=== PATIENT | male | born 1985 | race Caucasian/White ===

== ENCOUNTER 2022-09-01 17:44 | Outpatient (REF) | payer BC, SELFPAY ==
[2022-09-01 21:29] LABS: HCT 44.9 % (40.0-50.0); HGB 14.9 g/dL (13.5-17.5); MCH 29.4 pg (27.0-33.0); MCHC 33.2 % (32.0-36.0); MCV 89 fL (80-95); MPV 9.9 fL (8.0-11.0); Platelet Count 334 10^3/uL (130-400); RBC 5.07 10^6/uL (4.36-5.78); RDW 12.1 % (11.8-14.1); RDW-SD 39.4 fL; WBC 6.61 10^3/uL (4.4-10.8)
[2022-09-01 21:43] LABS: ALT 57 U/L (16-63); AST 31 U/L (15-37); Albumin 4.5 g/dL (3.4-5.0); Alkaline Phosphatase 69 U/L (46-116); Anion Gap 8.2 mmol/L (3-11); BUN 13 mg/dL (7-18); Bilirubin, Total 0.7 mg/dL (0.2-1.0); CO2 29.8 mmol/L (21.0-32.0); Calcium 9.5 mg/dL (8.5-10.1); Calculated LDL 185 mg/dL (<100); Chloride 104 mmol/L (98-107); Cholesterol 288 mg/dL (<200); Estimated GFR 101.28 (mL/min/1.73m2); Glucose 99 mg/dL (74-106); HDL Cholesterol 47 mg/dL (40-60); Sodium 142 mmol/L (136-145); Total Protein 8.1 g/dL (6.4-8.2); Triglyceride 281 mg/dL (<150)
[2022-09-01 21:48] LABS: Hemoglobin A1C 5.3 % (<5.7)
== END 2022-09-01 17:45 | disposition home or self-care (01) ==
LOC: NCHCN 17:44
PROVIDERS: Visit Provider Nurse Practitioner Family
DX: Z00.00 Encounter for general adult medical examination without abnormal findings (principal); M54.59 Other low back pain; E66.8 Other obesity; Z13.1 Encounter for screening for diabetes mellitus; Z13.220 Encounter for screening for lipoid disorders
CPT/HCPCS: 80053; 80061; 85027; 83036

== ENCOUNTER 2023-10-26 18:03 | Outpatient (REF) | payer BC, SELFPAY ==
[2023-10-26 22:27] LABS: Abs Immature Grans 0.01 10^3/uL (0.0-0.06); Absolute Basophil Count 0.05 10^3/uL (0.0-0.2); Absolute Eosinophil Count 0.14 10^3/uL (0.0-0.7); Absolute Lymphocyte Count 1.59 10^3/uL (1.2-3.4); Absolute Monocyte Count 0.64 10^3/uL (0.1-0.8); Basophils % 1.1; HCT 43.9 % (40.0-50.0); HGB 14.8 g/dL (13.5-17.5); Immature Grans % 0.2; Lymphocytes % 34.3; MCH 30.1 pg (27.0-33.0); MCHC 33.7 % (32.0-36.0); MCV 89 fL (80-95); MPV 9.9 fL (8.0-11.0); Monocytes % 13.8; Neutrophils % 47.6; Platelet Count 303 10^3/uL (130-400); RBC 4.91 10^6/uL (4.36-5.78); RDW-SD 39.6 fL; WBC 4.63 10^3/uL (4.4-10.8)
[2023-10-26 22:42] LABS: ALT 93 U/L (16-63); AST 36 U/L (15-37); Albumin 4.2 g/dL (3.4-5.0); Alkaline Phosphatase 67 U/L (46-116); Anion Gap 9.7 mmol/L (3-11); BUN 11 mg/dL (7-18); Bilirubin, Total 0.6 mg/dL (0.2-1.0); CO2 26.3 mmol/L (21.0-32.0); CREATININE 0.9 mg/dL (0.70-1.30); Calcium 8.8 mg/dL (8.5-10.1); Chloride 106 mmol/L (98-107); Creatine Kinase 230 U/L (39-308); Estimated GFR 114.22 (mL/min/1.73m2); Glucose 91 mg/dL (74-106); Sodium 142 mmol/L (136-145); Total Protein 7.6 g/dL (6.4-8.2)
[2023-10-26 22:59] LABS: ESR 10 mm/hr (0-15)
[2023-10-27 17:20] LABS: CRP, High Sensitivity 4.42 mg/L (See Note)
[2023-10-28 10:58] LABS: Lyme Ab w Rflx to Lyme Confirm Negative (Negative)
[2023-10-30 00:06] LABS: Anaplasma phagocytophilum Negative (Negative); B. miyamotoi PCR Negative (Negative); Babesia divergens/MO-1 Negative (Negative); Babesia duncani Negative (Negative); Babesia microti Negative (Negative); Ehrlichia chaffeensis Negative (Negative); Ehrlichia ewingii/canis Negative (Negative); Ehrlichia muris eauclairensis Negative (Negative)
== END 2023-10-26 18:04 | disposition home or self-care (01) ==
LOC: NCHCN 18:03
PROVIDERS: Visit Provider Registered Nurse
DX: R52 Pain, unspecified (principal)
CPT/HCPCS: 80053; 82550; 85652; 86141; 87798; 85025; 86618

== ENCOUNTER 2024-04-04 20:38 | Outpatient (REF) | payer BC, SELFPAY ==
--- OUTSIDE RECORDS SUMMARY | 2024-04-04 20:39 | XMS_ITS | Encounter Summary ---
Author Organization [facility] Address [address] [place] [address] Care Team Providers Care Light Rail Transit Operator Name Role Phone Colleen Sheridan OIL WELL SHOOTER Primary Care Provider [phone] Reason for Referral * Consult, Test and Treat (Routine/Next Available) - Authorization Not Required Specialty Diagnoses / Procedures Referred By Contac t Referred To Contact Pain Medicine Diagnoses Low back pain radiating to both legs Elizabeth Bartholomew PA-C [address] [facility] [place] [address] [facility] [address] [place] [address] Referral ID Status Reason Start Date Expiration Date Visits Requested Visits Authorized [id number] Authorization Not Required Specialty Services Required 4 1 1 Question Answer What procedure would you like performed? Please specify laterality and levels. L5-S1 LUCY Has the patient had 6 weeks of conservative treatment such as physicial therapy or NSAIDS? Yes Associated Notes: Prism Reason for Request: Low back pain radiating to both legs Reason for Visit * Reason Comments Pain * Consult (Routine) - Receiving Office to Obtain Authorization Specialty Diagnoses / Procedures Referred By Contac t Referred To Contact Orthopedic Surgery Diagnoses Radiculopathy, lumbosacral region Syeda Snowden PA-C [address] [place] [address] [facility] [address] [place] [address] Referral ID Status Reason Start Date Expiration Date Visits Requested Visits Authorized [id number] Receiving Office to Obtain Authorization 1 1 Encounter Details Date Type Department Care Team (Late st Contact Info) Description 02/26/2024 13:00 EDT Office Visit [facility] [address] [place] [address] Elizabeth Bartholomew PA-C [address] [facility] [place] [address] Low back pain radiating to both legs (Primary Dx) Social History Tobacco Use Types Packs/Day Years Used Date Smoking Tobacco: Never Smokeless Tobacco: Never Tobacco Cessation:Counseling Given: Not Answered Alcohol Use Standard Drinks/Week Comments No 0 (1 standard drink = 0.6 oz pur e alcohol) AUDIT-C Answer Date Recorded Frequency of Alcohol Consumption Never 06/06/2018 Average Number of Drinks Not on file 018 Frequency of Binge Drinking Not on file 05/14 Interpersonal Safety Answer Date Record ed Physically Hurt Never 02/12/2020 Verbally Threaten Not on file 02/12/2020 Sex and Gender Information Value Date Recorded Sex Assigned at Not on file Gender Identity Not on file Sexual Orientation Not on file documented as of this encounter Progress Notes * Elizabeth Bartholomew PA-C - 02/26/2024 1300 EDT Mr. Roper is a 38 y.o. pleasant male who presents to the clinic today, 02/26/2024, with 50% LBP. 50% B/L LE pain affecting: A. THIGH: Posterior aspect. Numbness in the anterior aspect as well B. LOWER LEG: Posterior aspect. C. FOOT: No symptoms. ONSET: This is a chronic issue that has been present since 2021, for LBP and since September 2023, for B/L LE symptoms. Has not been improving.. Symptoms wax and wane, but they are present everyday. ALLEVIATING FACTORS: Bending forward. AGGRAVATING FACTORS: Laying down, sitting, extending his back. PAIN: 6/10. CONSERVATIVE TX: Physical Therapy: Yes, did not help. CHIRO: No. Steroid injections: NONE. Medications: None. SOCIAL: SMOKING: Never. 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 Patient lives with his . Review of Systems Constitutional: Positive for activity change. Negative for unexpected weight change. Eyes: Negative for visual disturbance. Respiratory: Negative for chest tightness. Gastrointestinal: Negative for constipation. Genitourinary: Negative for difficulty urinating. Musculoskeletal: Positive for low back pain. Negative for neck pain. Skin: Negative for rash. Neurological: positive for numbness. Psychiatric/Behavioral: Negative for agitation and behavioral problems. Physical Exam Constitutional: Patient is oriented to person, place, and time, and appears well-developed and well-nourished. Eyes: EOM are normal. Pupils are equal, round, and reactive to light. Cardiovascular: Normal rate. Pulmonary/Chest: Effort normal and breath sounds normal. Neurological: Patient is alert and oriented to person, place, and time. Skin: Skin is warm and dry. No rash noted. Psychiatric: Patient has a normal mood and affect, and behavior is normal. Family and Social History: Reviewed. Back Exam from initial visit in 02/26/2024: GAIT: Normal. HEEL & TOE WALKING: NEG. LESIONS, RASHES OR HAIR ISSA: NEG. FROM, but pain is elicited with extension/rotation of the lumbar spine. TENDERNESS ON PALPATION: NEG. STRENGTH: 5/5 REFLEXES: Patellar 2/4 B/L; Achilles 2/4 B/L. BABINSKI: Down. CLONUS: NEG. DP: 2/2. SENSATION: Intact. SLR RIGHT: NEG. LEFT: NEG. HIP ROM: Full. BERKLEY'S: NEG. Today, 02/26/2024, I ordered plain radiographs and I independently reviewed the following radiographs: MRI-01/06/2024: L5-S1: Diffuse disc bulging at L5-S1 that extends laterally causing moderate left neuroforaminal narrowing. There is also small central disc herniation with extrusion posterior to the S1 vertebral body. Lumbar Plain radiographs (AP/Lat/Flex/Ex): Five (5) non-rib bearing lumbar vertebrae Facet arthropathy of the lower lumbar spine Disc height reduction at L5-S1 conistent with degenerative disc disease No fractures or pars defects noted Assessment: 38 y.o. male with 50% LBP most likely secondary to degenerative disc/facet disease. 50% B/L LE pain along the S1 dermatome most likely radicular in nature. MRI concordant especially with left-sided symptoms. Chemical radiculopathy could justify RLE symptoms.. Paresthesias along the L3 dermatomes not concordant with MRI. He has agreed and verbalized understanding of the following plan. Plan: L5-S1 LUCY. Continue with in-home exercise program. Continue activity as tolerated. Return to clinic post L5-S1 LUCY-if no relief, referred for surgical consultation if desired by patient. CC: Dr. Arvin Arizmendi was the attending physician available in the clinic today if needed. A consultation was not required. documented in this encounter Plan of Treatment Upcoming Encounters Date Type Department Care Team (Late st Contact Info) Description 04/22/2024 14:30 EDT Office Visit [facility] Interventional Pain [address] [place], [place] [id number] Сергей Maloney MBBS [address] [facility] [address] [place] [address] Scheduled Referrals Name Type Priority Associated Diagnoses Order Schedule AMB PAIN PROCEDURE Outpatient Referral Routine/Next Available Low back pain radiating to both legs Expected: 03/04/2024 (Approximate), Expires: 02/25/2025 documented as of this encounter Visit Diagnoses Diagnosis Low back pain radiating to both legs- Primary Lumbago documented in this encounter Historical Medications * This list may reflect changes made after this encounter. Medication Sig Dispensed Refills Start Date End Date meloxicam (MOBIC) 15 mg tablet Take 1 Tablet by mouth at bedtime as needed for Pain. 11/02/2023 added in this encounter Care Teams Light Rail Transit Operator Relationship Specialty Start Date End Date Colleen Sheridan, JOHN [address] [place] [address] PCP - General 06/06/18 documented as of this encounter
--- OUTSIDE RECORDS SUMMARY | 2024-04-04 20:39 | XMS_ITS ---
Author Organization Unknown Address [address] [place] [phone] Phone Care Team Providers Care Child Care Aide Name Role Phone KADEN Galvan Attending Unavailable Social History Type Status Start Date End Date Code Code Syst em Smoking History Former smoker [id number] SNOMED CT Sex Male Hospital Discharge Instructions Should you have any questions prior to discharge, please contact a member of your healthcare team. If you have left the hospital and have any questions, please contact your primary care physician. Reason For Referral No Data Found Allergies and Adverse Reactions Allergy Substance Reaction Severity Start Date Concern Status Co de Code System No Known Allergies Moderate Active Plan of Treatment MRI L SPINE W/O CONTRAST 01/06/2024 X-RAY 06/10/2021 Encounters Encounter Diagnosis Start Date Code Code Sys tem Pain in thoracic spine 02/19/2024 SNOME D-CT Personal Care Team Section Performer Name Performer Role Active Date Inactive Da te
--- OUTSIDE RECORDS SUMMARY | 2024-04-04 20:39 | XMS_ITS ---
Author Organization Unknown Address [address] [place] [phone] Phone Care Team Providers Care Talent Manager Name Role Phone ZULY Rueda Attending Unavailable KADEN Galvan Primary Unavailable Results MR LS SPINE WO CONTRAST - Co mpleted: 01/06/2024 15:55 LOINC: [facility] [place], [place] [address] [facility] REGULAT[facility] SCIENTIST REPORT Patient Name: BALTAZAR KEN Marybeth MRN: Sex: : Age: [id number] M [id number] Account: Accession: Admit: StayType: [id number] 01/06/2024 O Ordered: Order ID: Submitted: Ordering Provider: 01/06/2024 14:48 [id number] KT RIVAS CARUSO Completed: Technologist: Resulted: 01/06/2024 15:01 AXH 01/06/2024 16:19 FINAL REPORT EXAM: MR LS SPINE WO CONTRAST CLINICAL HISTORY: Reason MRI Spine: Radicalopathy. TECHNIQUE: Multiplanar multisequence MRI of the Lumbar spine was performed. COMPARISON: No exams were available for comparison FINDINGS: Bones: The last intervertebral disc space is designated the L5/S1 level for the numbering purpose of this examination. The vertebral body heights are well maintained. Alignment is satisfactory. There are degenerative endplate signal changes at L5-S1. There is disc desiccation at L5-S1. Cord: The conus tip ends at the T12 level. It is of normal size and signal intensity. T12-L1: No disc herniations or bulges are present. No central spinal canal or neural foraminal stenosis. L1-2: No disc herniations or bulges are present. No central spinal canal or neural foraminal stenosis. L2-3: No disc herniations or bulges are present. No central spinal canal or neural foraminal stenosis. L3-4: No disc herniations or bulges are present. No central spinal canal or neural foraminal stenosis. L4-5: No disc herniations or bulges are present. No central spinal canal or neural foraminal stenosis. L5-S1: There is a central disc herniation present. There is also herniation of disc material laterally to the left causing moderate left neural foraminal stenosis. No significant central spinal canal or right neural foraminal stenosis is present. Soft tissues: The visualized SI joints and sacrum are well maintained. The paraspinal soft tissues are unremarkable. IMPRESSION: 1. There is a diffuse disc bulge at L5-S1 with extension laterally to the left causing moderate left neural foraminal stenosis. There is also small central disc herniation with extrusion posterior to the S1 vertebral body. 2. The remaining disc levels show no focal disc herniation, central spinal canal or neural foraminal stenosis. DATA REPOSITORY: Electronically signed by: Shawn Silver Dictated: 01/05 Social History Type Status Start Date End Date Code Code Syst em Smoking History Former smoker [id number] SNOMED CT Sex Male Hospital Discharge Instructions [...] Diagnosis Start Date Code Code Sys tem Intervertebral disc disorder s with radiculopathy, lumbar region 01/06/2024 SNOMED-CT Personal Care Team Section Performer Name Performer Role Active Date Inactive Da te
--- OUTSIDE RECORDS SUMMARY | 2024-04-04 20:39 | XMS_ITS ---
Author Organization Unknown Address [address] [place] [phone] Phone Care Team Providers Care Orthotic Practitioner Name Role Phone SHARAN Quinones Attending Unavailable KADEN Galvan Primary Unavailable Results SPERM, PRESENCE OF - POST VA SECTOMY* - Collect Date/Time: 02/24/2022 13:00 [facility] ID: [id number] [address] [place] [address], [id number] LOINC: 26759-2 Test Value Unit Reference Range Code Code System Flag Presence Not present Social History Type Status Start Date End Date Code Code Syst em Smoking History Former smoker [id number] SNOMED CT Sex Male Hospital Discharge Instructions [...] Diagnosis Start Date Code Code Sys tem Sterilization procedure 02/24/2022 [id number] SNOM ED-CT Personal Care Team Section Performer Name Performer Role Active Date Inactive Da te
--- OUTSIDE RECORDS SUMMARY | 2024-04-04 20:39 | XMS_ITS | Referral Summary ---
Author Organization [facility] Address [address] [place] [address] Care Team Providers Care Adjunct Business Instructor Name Role Phone Colleen Sheridan CHUTE WORKER Primary Care Provider [phone] Encounters Date Type Department Care Team Description 02/26/2024 12:45 EDT - 02/26/2024 23:59 EDT Hospital Encounter [facility] [address] [place] [address] Discharge Disposition: Home or Self Care 02/26/2024 13:00 EDT Office Visit [facility] [place] [address] Elizabeth Bartholomew PA-C Low back pain radiating to both legs (Primary Dx) 02/25/2024 Orders Only [facility] [place] [address] Elizabeth Bartholomew PA-C Low back pain, unspecified back pain laterality, unspecified chronicity, unspecified whether sciatica present (Primary Dx) 01/06/2024 - 01/06/2024 23:59 EDT Hospital Encounter [facility] [place] Discharge Disposition: Home or Self Care from Last 3 Months Allergies No known active allergies Medications Medication Sig Dispensed Refills Start Date End Date Status erythromycin (ROMYCIN) 5 mg/gram (0.5 %) ophthalmic ointment Place 1 cm into the left eye 4 times daily. prn 3.5 g 3 06/06/2018 Active Additional Information Patient not taking.Reported on 06/10/2018 moxifloxacin (VIGAMOX) 0.5 % ophthalmic solution Place 1 Drop into the left eye 4 times daily. 3 mL 3 06/06/2018 Active Additional Information Patient not taking.Reported on 06/10/2018 meloxicam (MOBIC) 15 mg tablet Take 1 Tablet by mouth at bedtime as needed for Pain. 11/02/2023 Active Social History Tobacco Use Types Packs/Day Years [...] on file Sexual Orientation Not on file Last Filed Vital Signs Vital Sign Reading Time Taken Comments Blood Pressure 137/75 06/06/2018 1318 EST Pulse 62 06/06/2018 1318 EST Temperature 36.2 ??C (97.2 ??F) 06/06/2018 1318 EST Respiratory Rate 16 06/06/2018 1318 EST Oxygen Saturation 100% 06/06/2018 1318 EST Inhaled Oxygen Concentration - - Weight 90.7 kg (200 lb) 06/06/2018 1318 EST Height 172.7 cm (5' 8) 06/06/2018 1318 EST Body Mass Index 30.41 06/06/2018 1318 EST Plan of Treatment Upcoming Encounters Date Type Department Care Team (Late st Contact Info) Description 04/22/2024 14:30 EDT Office Visit [facility] Interventional Pain [address] [place] [address] Сергей Maloney MBBS [address] [facility] [address] [place] [address] Procedures Procedure Name Priority Date/Time Associated Diagnosis Comments XR LUMBAR SPINE 4+ VIEWS Routine 02/26/2024 13:14 EDT Low back pain, unspecified back pain laterality, unspecified chronicity, unspecified whether sciatica present MR OUTSIDE IMAGES LUMBAR SPINE Routine 01/06/2024 13:57 EDT from Last 3 Months Results * XR LUMBAR SPINE 4+ VIEWS (02/26/2024 13:14 EDT) Anatomical Region Laterality Modality Computed Radiogr aphy 03/01/2024 6:37 EDT Narrative 03/01/2024 6:37 EDT XR LUMBAR SPINE 4+ VIEWS 02/26/2024 1:03 PM Clinical History/Comments: assess stability Comparison: MRI lumbar spine 01/06/2024 Technique: Lumbar spine. 4 views Findings: For the purposes of this dictation and to be consistent with prior MRI report, the last well-formed disc is labeled L5-S1. Mild retrolisthesis of L5 on S1, unchanged. No evidence of instability. Vertebral body heights are preserved. Moderate disc space narrowing and facet arthropathy at L5-S1. [id number] Resulting Agency Comment [id number] Procedure Note Rachelle Agudelo MD - 03/01/2024 XR LUMBAR SPINE 4+ VIEWS 02/26/2024 1:03 PM Clinical History/Comments: assess stability Comparison: MRI lumbar spine 01/06/2024 Technique: Lumbar spine. 4 views Findings: For the purposes of this dictation and to be consistent with prior MRIreport, the last well-formed disc is labeled L5-S1. Mild retrolisthesis of L5 on S1, unchanged. No evidence of instability.Vertebral body heights are preserved. Moderate disc space narrowing andfacet arthropathy at L5- S1. [id number] Elizabeth Bartholomew PA-C IMG DIAGNOSTIC IMAGING ORDERABLES * MR OUTSIDE IMAGES LUMBAR SPINE (01/06/2024 13:57 EDT) Narrative 02/26/2024 13:57 EDT This is a non-reportable exam. External Imaging IMG OTHER IMAGING OR DERABLES from Last 3 Months Stephan Roper Personal/Family Self 1985 [address] [facility] [place] [address] Stephan Roper Personal/Family Self 1985 [address] [facility] [place] [address] Stephan Roper Personal/Family Self 1985 73 [facility] [place] [address] Stephan Roper Personal/Family Self 1985 [address] [employer] [facility] [place] [address] Care Teams Adjunct Business Instructor Relationship Specialty Start Date End Date Colleen Sheridan NP [address] [place] [address] PCP - General 06/06/18
--- OUTSIDE RECORDS SUMMARY | 2024-04-04 20:39 | XMS_ITS | Clinical Summary ---
Author Organization [facility] Address [address] [place] [address] Care Team Providers Care Slat Grader Name Role Phone ArvinColleen Mandy EMAIL MARKETING COORDINATOR Primary Care Provider [phone] Allergies No known active allergies Medications Medication [...] bedtime as needed for Pain. 11/02/2023 Active Encounters Date Type Department Care Team Description 02/26/2024 13:00 EDT Office Visit [facility] [place] [address] Elizabeth Bartholomew PA-C Low back pain radiating to both legs (Primary Dx) 02/26/2024 12:45 EDT - 02/26/2024 23:59 EDT Hospital [place] [address] Discharge Disposition: Home or Self Care 02/25/2024 Orders Only [facility] [place] [address] Delaportas, Grigorios, PA-C Low back pain, unspecified back pain laterality, unspecified chronicity, unspecified whether sciatica present (Primary Dx) 01/06/2024 - 01/06/2024 23:59 EDT Hospital Encounter [facility] [place] Discharge Disposition: Home or Self Care from Last 3 Months Social History Tobacco Use Types Packs/Day Years [...] on file Sexual Orientation Not on file Obstetrics History Last Filed Vital Signs Vital Sign Reading [...] Info) Description 04/22/2024 14:30 EDT Office Visit [facility] Interventional Pain [address] [place] [address] Сергей Maloney MBBS [address] [facility] [address] [place] [address] Health Maintenance Due Date Last Done Comments Hepatitis C Screen 1985 Hepatitis B Vaccine (1 of 3 - 19+ 3-dose series) 10/28 COVID-19 Vaccine ( - 2023-24 season) 2023 Procedures Procedure Name Priority Date/Time Associated Diagnosis [...] space narrowing and facet arthropathy at L5-S1. [id number] Resulting Agency Comment [id number] Procedure Note Rachelle Agudelo MD - 03/01/2024 [...] space narrowing andfacet arthropathy at L5- S1. [id number] Elizabeth Bartholomew PA-C [facility] DIAGNOSTIC IMAGING ORDERABLES * MR OUTSIDE IMAGES LUMBAR SPINE (01/06/2024 13:57 EDT) Narrative 02/26/2024 13:57 EDT This is a non-reportable exam. External Imaging IMG OTHER IMAGING OR DERABLES from Last 3 Months Care Teams Slat Grader Relationship Specialty Start Date End Date Colleen Sheridan, JOHN [address] [place] [address] PCP - General 06/06/18
--- OUTSIDE RECORDS SUMMARY | 2024-04-04 20:39 | XMS_ITS | Encounter Summary ---
Author Organization [facility] Address [address] [place] [address] Care Team Providers Care Goat Farmer Name Role Phone Colleen Sheridan MANAGEMENT RETAIL INTERN Primary Care Provider [phone] Encounter Details Date Type Department Care Team (Latest Contact Info) Description 02/26/2024 12:45 EDT - 02/26/2024 23:[address] ED[address] En[address] [place], [place] [id number] Discharge Disposition: Home or Self Care Social History Tobacco Use Types Packs/Day Years Used Date Smoking Tobacco: Never Smokeless Tobacco: Never Alcohol Use Standard Drinks/Week Comments No 0 [...] on file documented as of this encounter Medications at Time of Discharge Medication Sig Dispensed Refills Start Date End Date erythromycin (ROMYCIN) 5 mg/gram (0.5 %) ophthalmic ointment Place 1 cm into the left eye 4 times daily. prn 3.5 g 3 06/06/2018 meloxicam (MOBIC) 15 mg tablet Take 1 Tablet by mouth at bedtime as needed for Pain. 11/02/2023 moxifloxacin (VIGAMOX) 0.5 % ophthalmic solution Place 1 Drop into the left eye 4 times daily. 3 mL 3 06/06/2018 documented as of this encounter Discharge Disposition Disposition Code Departure Means Destination Home or Self Care documented in this encounter Plan of Treatment Upcoming Encounters Date Type Department Care Team (Late st Contact Info) Description 04/22/2024 14:[address] [facility] Interventional Pain [address] [place] [address] Сергей Maloney MBBS [address] [place] [address] documented as of this encounter Procedures Procedure Name Priority Date/Time Associated Diagnosis Comments XR LUMBAR SPINE 4+ VIEWS Routine 02/26/2024 13:14 EDT Low back pain, unspecified back pain laterality, unspecified chronicity, unspecified whether sciatica present documented in this encounter Results * XR LUMBAR SPINE 4+ VIEWS [...] space narrowing and facet arthropathy at L5-S1. [id number] Resulting Agency Comment [id number] Procedure Note Rachelle Agudelo MD - 03/01/2024 [...] space narrowing andfacet arthropathy at L5- S1. [id number] Elizabeth Bartholomew PA-C IMG DIAGNOSTIC IMAGING ORDERABLES documented in this encounter Visit Diagnoses Not on filedocumented in this encounter Care Teams Goat Farmer Relationship Specialty Start Date End Date Colleen Sheridan, MANAGEMENT RETAIL INTERN [address] [place] [address] PCP - General 06/06/18 documented as of this encounter
--- OUTSIDE RECORDS SUMMARY | 2024-04-04 20:40 | XMS_ITS | Encounter Summary ---
Author Organization [facility] Address [address] [place] [address] Care Team Providers Care Senior Label Specialist Name Role Phone MarshallColleen horn Mandy CASH APPLICATIONS ANALYST Primary Care Provider [phone] Reason for Visit * Reason Comments Foreign Body in Eye Arrives from [facility] with unknown FB in L eye +irratation and redness. Encounter Details Date Type Department Care Team (Late st Contact Info) Description 06/06/2018 13:13 EST - 06/06/2018 15:25 EST [facility] Emergency Department - [address] [id number] Xavier Moore MD [address] [address] David Obrien MD MSc [address] [place] [phone] Foreign body of left cornea, initial encounter (Primary Dx) Discharge Disposition: Referred to [facility] for OP Service Social History Tobacco Use Types Packs/Day Years Used Date Smoking Tobacco: Never Alcohol Use Standard Drinks/Week Comments No 0 (1 standard drink = 0.6 oz pur e alcohol) AUDIT-C Answer Date Recorded Frequency of Alcohol Consumption Never 06/06/2018 Average Number of Drinks Not on file 018 Frequency of Binge Drinking Not on file 05/14 Sex and Gender Information Value Date Recorded Sex Assigned at Not on file Gender Identity Not on file Sexual Orientation Not on file documented as of this encounter Last Filed Vital Signs Vital Sign Reading [...] Body Mass Index 30.41 06/06/2018 1318 EST documented in this encounter Discharge Diagnoses Diagnosis T15.02XA Foreign body in cornea, left eye, initial encounter-T15.02XA[ICD-10-CM] H57.12 Ocular pain, left eye-H57.12[ICD-10-CM] H53.8 Other visual disturbances-H53.8[ICD-10-CM] documented in this encounter Discharge Instructions * Attachments The following attachments cannot be sent through Care Everywhere. * FOREIGN BODY IN THE EYE (CHADIAN) documented in this encounter Discharge Disposition Disposition Code Departure Means Destination Referred to [facility] for OP Service Home documented in this encounter ED Notes * Kassie Mendoza RN - 06/06/2018 1525 EST MD moore discharged this patient to opthalm clinic. * Xavier Moore MD - 06/06/2018 1440 EST DOS: 06/06/2018 Chief Complaint Patient presents with ??? Foreign Body in Eye Arrives from [facility] with unknown FB in L eye +irratation and redness. HPI I, Elie Jennings, am scribing for Xavier Moore MD while he/she is personally performing the service. Elie Jennings 06/06/2018 14:41 Baltazar Roper is a 32 y.o. male with no significant medical history who arrives to the ED with complaints of a foreign body in his eye. 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 [facility] and removed but an embedded small foreign body was appreciated that was not able to be removed and ophthalmology was consulted. Patient was transferred for ophthalmology evaluation and foreign body removal. Patient has had conjunctival injection on the left with tearing, foreign body sensation without alleviating or exacerb ating factors. He has not had associated headache, no fevers, chills sweats, or systemic symptoms. The history is provided by the patient and medical records. Review of Systems Review of Systems Constitutional: Negative for chills and fever. HENT: Negative for sinus pressure and sore throat. Eyes: Positive for pain, redness and visual disturbance. Respiratory: Negative for cough and shortness of breath. Cardiovascular: Negative for chest pain. Gastrointestinal: Negative for abdominal pain, diarrhea, nausea and vomiting. Genitourinary: Negative for dysuria and frequency. Skin: Negative for rash. Neurological: Negative for headaches. The patient's past medical, family and social history was reviewed and updated as needed. No Known Allergies Vital Signs Temp: 36.2 ??C (97.2 ??F) Temp src: Temporal Pulse: 62 Resp: 16 SpO2: 100 % BP: 137/75 BP MAP: 87 mm Hg BP Device: BP Machine Patient Position: Sitting BP Cuff Location: Left arm O2 Device: None (Room air) Physical Exam Constitutional: He is oriented to person, place, and time. He appears well- developed and well-nourished. No distress. HENT: Head: Normocephalic and atraumatic. Eyes: EOM are normal. Pupils are equal, round, and reactive to light. Foreign body present in the left eye. Left conjunctiva is injected. Conjunctiva injection in the left, with tearing. Small punctate, round foreign body at the 12 o clock position above the pupil. No obvious corneal defect. Neck: Normal range of motion. Neck supple. No tracheal deviation present. Cardiovascular: Normal rate, regular rhythm, normal heart sounds and intact distal pulses. No murmur heard. Pulmonary/Chest: Effort normal and breath sounds normal. No respiratory distress. He has no wheezes. Abdominal: Soft. Bowel sounds are normal. He exhibits no distension. There is no tenderness. Musculoskeletal: Normal range of motion. He exhibits no edema. Neurological: He is alert and oriented to person, place, and time. He exhibits normal muscle tone. Skin: Skin is warm and dry. No rash noted. Psychiatric: He has a normal mood and affect. Nursing note and vitals reviewed. RESULTS EKG orders: None Radiology orders: None Procedures ED COURSE A medical screening exam was performed. 32-year-old male presents for ophthalmology evaluation of corneal foreign body on the left. Patienthad a very small foreign body at the 12 o'clock position above the pupil on the left with associated conjunctival injection and tearing. He was anesthetized with tetracaine with complete resolution in his foreign body sensation. He was discharged to ophthalmology directly upstairs for foreign body removal. Return precautions were given which he understood. Final diagnoses: Foreign body of left cornea, initial encounter DISPOSITION: Discharged The patient's pain was managed to an adequate level weighing risk vs. benefit of further medications. Upon departure from the Emergency Department, the patient's pain was 0 on a zero to ten scale. Any further pain treatment will be at the discretion of the provider following up with the patient based on their clinical assessment. Condition at departure from the Emergency Department: Improved PCP: Colleen Sheridan [facility] 06/06/2018 16:03 No flowsheet data found. This documentation is recorded by Elie Jennings acting as Scribe under the direction and presence of Xavier Moore MD. Xavier Moore MD: I personally performed the services recorded by the scribe in my presence. I confirm the scribe's documentation has been reviewed by me to accurately and completely record my work,treatment, procedures, and medical decision making. * Glenn Magdaleno - 06/06/2018 1317 EST TCALL: BALTAZAR GREEN 87. 32M LEFT CONAL FB X2DAYS. FB AT 12 OCLOCK - ONLY PARTIALLY REMOVED. NEEDS OPHTHO. SEE NOTE TAKEN BY DR. OBRIEN. (EDGAR) documented in this encounter Plan of Treatment Upcoming Encounters Date Type Department Care Team (Late st Contact Info) Description 04/22/2024 14:30 EDT Office Visit [facility] Interventional Pain [address] [place], [place] [id number] Сергей Maloney MBBS [address] [facility] [address] [place] [address] documented as of this encounter Visit Diagnoses Diagnosis Foreign body of left cornea, initial encounter- Primary documented in this encounter Administered Medications Inactive Administered Medications - up to 3 most recent administrations Medication Order MAR Action Action Date Dose Rate Site tetracaine HCl (PF) (PONTOCAINE) 0.5 % ophthalmic solution 1 Drop 1 Drop, left eye, Once (Without Time Specified), 1 dose, Starting on 06/06/18 at 1409, Until 06/06/18 at 1725, STAT documented in this encounter Active and Recently Administered Medications Times are shown in EST. Scheduled Medication Order 06/04/2018 06/05/2018 06/06/2018 tetracaine HCl (PF) (PONTOCAINE) 0.5 % ophthalmic solution 1 Drop 1 Drop, left eye, Once (Without Time Specified), 1 dose, Starting on 06/06/18 at 1409, Until 06/06/18 at 1725, STAT documented in this encounter Orders Medications Ordered That Garcia ht Not Have Been Administered Count Last Ordered Date First Ordered Date tetracaine HCl (PF) (PONTOCA INE) 0.5 % ophthalmic solution 1 Drop 1 06/06/2018 documented in this encounter Care Teams Senior Label Specialist Relationship Specialty Start Date End Date Colleen Sheridan NP [address] [place] [address] PCP - General 06/06/18 documented as of this encounter
--- OUTSIDE RECORDS SUMMARY | 2024-04-04 20:40 | XMS_ITS | Encounter Summary ---
Author Organization [facility] Address [address] [place] [address] Care Team Providers Care Syrup Shed Supervisor Name Role Phone Unavailable Primary Care Provider Unavailabl e Encounter Details Date Type Department Care Team (Latest Contact Info) Description 08/01/2014 12:16 EST - 08/01/2014 23:59 EST Hospital Encounter [facility] [address] [place] [address] Unknown, Provider, Discharge Disposition: Home or Self Care Social History Tobacco Use Types Packs/Day Years Used Date Smoking Tobacco: Never Assessed Sex and Gender Information Value Date Recorded Sex Assigned at Not on file Gender Identity Not on file Sexual Orientation Not on file documented as of this encounter Discharge Disposition Disposition Code Departure Means Destination Home or Self [facility] documented in this encounter Plan of Treatment Upcoming Encounters Date Type Department Care Team (Late st Contact Info) Description 04/22/2024 14:30 EDT Office Visit [facility] Interventional Pain [address] [place] [address] Сергей Maloney MBBS [address] [facility] [address] [place] [address] documented as of this encounter Visit Diagnoses Not on filedocumented in this encounter
--- OUTSIDE RECORDS SUMMARY | 2024-04-04 20:40 | XMS_ITS | Encounter Summary ---
Author Organization [facility] Address [address] [place] [address] Care Team Providers Care Shuttlecock Feather Trimmer Name Role Phone Colleen Sheridan DEVELOPMENT EDUCATOR Primary Care Provider [phone] Reason for Visit * Reason Comments Eye Problem Follow-up Encounter Details Date Type Department Care Team (Late st Contact Info) Description 06/10/2018 13:00 EST Office Visit [facility]mology - [place] [id number] [place] [address] Odessa Mao MD [address] [facility] [address] [place] [address] Social History Tobacco Use Types Packs/Day Years [...] as of this encounter Progress Notes * Odessa Mao MD - 06/10/2018 1300 EST CC: Chief Complaint Patient presents with ??? Eye Problem ??? Follow-up HPI: The patient is a 32 y.o. male. HPI Stephan is here for follow up corneal metallic foreign body, removed 4 days ago. Reports no new changes or concerns, vision stable, healing well. No FBS. Taking Vigamox qid OS Last edited by Odessa Mao MD on 06/15/2018 9:46. (History) ROS Constitutional: NL ENT/Mouth NL Cardiovascular: NL Respiratory: NL Gastrointestinal: NL Genitourinary: NL Musculoskeletal: NL Integumentary: NL Neurologic: NL Psychiatric: NL Endocrine: NL Hematologic: NL Immunologic: NL Claim Rep: Exposures: None Other: Attestation: Allergies include: Patient has no known allergies. There is no problem list on file for this patient. No outpatient medications have been marked as taking for the 06/10/18 encounter (Office Visit) withOdessa Mao MD. Base Eye Exam Visual Acuity (Snellen - Linear) Right Left Dist cc 20/20 20/20 -2 Near cc J1+ J1+ Tonometry (Icare, 13:06) Right Left Pressure 12 12 Pupils Pupils Right PERRL Left PERRL Normal Visual Mendoza Right Left Full Neuro/Psych Oriented x3: Yes Mood/Affect: Normal Slit Lamp and Fundus Exam External Exam Right Left External Normal Normal Slit Lamp Exam Right Left Lids/Lashes Normal Normal Conjunctiva/Sclera White and quiet White and quiet Cornea Clear Clear, no staining with fluoroscein Anterior Chamber Deep and quiet Deep and quiet Iris Round and reactive Round and reactive Lens Clear Clear Vitreous Normal Normal IMPRESSION & PLAN: Encounter Diagnoses Name Primary? Corneal foreign body, left, subsequent encounter Yes Corrected distance visual acuity was 20/20 in the right eye and 20/20 -2 in the left eye. Correctednear visual acuity was J1+ in the right eye and J1+ in the left eye. - baseline symptoms and vision - doing well, no corneal epi defect - dc vigamox - discussed wearing goggles during work to prevent injury to the eye including intraocular foreign body RTC prn I have reviewed the patient's past medical, family, social and surgical history. I have also reviewed the patient's medications, allergies, and problem list. I performed my own HPI and have reviewed the tech's ROS as well. I have reviewed and agree with the above sensorimotor exam/interpretation. I personally completed this exam myself. Odessa Mao MD The patient was instructed to call our office or go to emergency room if worse vision, worse symptoms, or new/other concerns arise. documented in this encounter Plan of Treatment Upcoming Encounters Date Type Department Care Team (Late st Contact Info) Description 04/22/2024 14:30 EDT Office Visit [facility] Interventional Pain [address] [place], [place] [id number] Сергей Maloney MBBS [address] [place] [address] documented as of this encounter Visit Diagnoses Diagnosis Corneal foreign body, left, subsequent encounter- Primary documented in this encounter Eye Exam Visual Acuity (Snellen - Linear) Right eye Left eye Dist cc 20/20 20/20 -2 Near cc J1+ J1+ Tonometry (Icare, 13:06) Right eye Left eye Pressure 12 12 Pupils Pupils Right eye PERRL Left eye PERRL Normal Visual Mendoza Right eye Left eye Full Neuro/Psych Oriented x3: Yes Mood/Affect: Normal External Exam Right eye Left eye External Normal Normal Slit Lamp Exam Right eye Left eye Lids/Lashes Normal Normal Conjunctiva/Sclera White and quiet White and nohemi et Cornea Clear Clear, no staini ng with fluoroscein Anterior Chamber Deep and quiet Deep and quiet Iris Round and reactive Round and mich ctive Lens Clear Clear Vitreous Normal Normal Care Teams Shuttlecock Feather Trimmer Relationship Specialty Start Date End Date Colleen Sheridan, JOHN [address] [place] [address] PCP - General 06/06/18 documented as of this encounter
--- OUTSIDE RECORDS SUMMARY | 2024-04-04 20:40 | XMS_ITS | Encounter Summary ---
Author Organization [facility] Address [address] [place] [address] Care Team Providers Care Linesperson Name Role Phone Colleen Sheridan AEROSPACE TECHNICIAN Primary Care Provider [phone] Encounter Details Date Type Department Care Team (Latest Contact Info) Description 06/06/2018 Travel Social History Tobacco Use Types Packs/Day Years [...] on file documented as of this encounter Plan of Treatment Upcoming Encounters Date Type Department Care Team (Late st Contact Info) Description 04/22/2024 14:30 EDT Office Visit [facility] Interventional Pain [address] [place] [address] Сергей Maloney MBBS [address] [facility] [address] [place] [address] documented as of this encounter Visit Diagnoses Not on filedocumented in this encounter Care Teams Linesperson Relationship Specialty Start Date End Date Colleen Sheridan, AEROSPACE TECHNICIAN [address] [place], [place] [address] PCP - General 06/06/18 documented as of this encounter
--- OUTSIDE RECORDS SUMMARY | 2024-04-04 20:40 | XMS_ITS | Encounter Summary ---
Author Organization [facility] Address [address] [place] [address] Care Team Providers Care Senior Manager Asset Protection Name Role Phone MarshallColleen horn Mandy MERCHANDISE STOCKER Primary Care Provider [phone] Reason for Visit * Reason Onset Date Comments Back Pain 02/25/2024 Encounter Details Date Type Department Care Team (Late st Contact Info) Description 02/25/2024 Orders Only [facility] [address] [place] [address] Elizabeth Bartholomew PA-C [address] [place] [address] [place] [address] Low back pain, unspecified back pain laterality, unspecified chronicity, unspecified whether sciatica present (Primary Dx) Social History Tobacco Use Types [...] Info) Description 04/22/2024 14:30 EDT Office Visit [facility] Interventional Pain [address] [place] [address] Сергей Maloney MBBS [address] [facility] [address] [place] [address] documented as of this encounter [...] space narrowing and facet arthropathy at L5-S1. [id number] Resulting Agency Comment [id number] Procedure Note Rachelle Agudelo MD - 03/01/2024 [...] space narrowing andfacet arthropathy at L5- S1. [id number] Elizabeth Bartholomew PA-C [facility]NO[facility] ORDERABLES documented in this encounter Visit Diagnoses Diagnosis Low back pain, unspecified back pain laterality, unspecified chronicity, unspecified whether sciatica present- Primary documented in this encounter Care Teams Senior Manager Asset Protection Relationship Specialty Start Date End Date Colleen Sheridan, JOHN [address] [place] [address] PCP - General 06/06/18 documented as of this encounter
--- OUTSIDE RECORDS SUMMARY | 2024-04-04 20:40 | XMS_ITS | Encounter Summary ---
Author Organization [facility] Address [address] [place] [address] Care Team Providers Care Director Retail Brand Development Name Role Phone ArvinColleen Mandy PRINTED CIRCUIT LAYOUT TAPER Primary Care Provider [phone] Encounter Details Date Type Department Care Team (Late st Contact Info) Description 10/27/2023 Lab Requisition [facility] Pathology & Laboratory Medicine - [address] [id number] Outr Resulting Lab, Provider Social History Tobacco Use Types Packs/Day Years [...] Info) Description 04/22/2024 14:30 EDT Office Visit [facility] Interventional Pain [address] [place] [address] Сергей Maloney MBBS [address] [facility] [address] [place] [address] documented as of this encounter Procedures Procedure Name Priority Date/Time Associated Diagnosis Comments LYME AB Routine 10/26/2023 15:00 EDT HIGH SENSITIVITY C-REACTIVE PROTEIN (CARDIOVASCULAR DISEASE) Routine 10/26/2023 15:00 EDT documented in this encounter Results * LYME AB (10/26/2023 15:00 EDT) Lyme Ab Negative Negative 10/28/2023 10:53 EDT [facility] Blood VENOUS BLOOD / Unknown 10/26/2023 15:00 EDT 10/27/2023 16:46 EDT Provider Outr Resulting Lab IMMUNOLOGY A ND SEROLOGY ORDERABLES Performing Organization Address [facility] de Phone Number [facility] [address] [place] [address] * HIGH SENSITIVITY C-REACTIVE PROTEIN (CARDIOVASCULAR DISEASE) (10/26/2023 15:00 EDT) Pathologist [facility] High Sensitivity CRP 4.42 See Note mg/L 10/27/2023 17:14 EDT [facility] Comment: Reference Range: ??Low Risk: ? <1.0 mg/L ??Average Risk: ?? 1.0 - 3.0 mg/L ??High Risk: ?>3.0 mg/L ??Indeterminate*: >10.0 mg/L ??*May be an indication of another source of inflammation or infection Blood VENOUS BLOOD / Unknown 10/26/2023 15:00 EDT 10/27/2023 16:46 EDT Provider Outr Resulting Lab CHEMISTRY & BLOOD GAS ORDERABLES Performing Organization Address [facility] Co de Phone Number [facility] [address] [place] [address] documented in this encounter Visit Diagnoses Not on filedocumented in this encounter Care Teams Director Retail Brand Development Relationship Specialty Start Date End Date Colleen Sheridan NP [address] [facility] [place] [address] PCP - General 06/06/18 documented as of this encounter
--- OUTSIDE RECORDS SUMMARY | 2024-04-04 20:40 | XMS_ITS | Encounter Summary ---
Author Organization [facility] Address [address] [place] [address] Care Team Providers Care Glass Inspector Name Role Phone Colleen Sheridan RUBBER BOOTS AND SHOES REPAIRER Primary Care Provider [phone] Reason for Referral * (Routine/Next Available) - Receiving Office to Obtain Authorization Specialty Diagnoses / Procedures Referred By Contac t Referred To Contact Procedures MR OUTSIDE IMAGES LUMBAR SPINE Imaging, External Referral ID Status Reason Start Date Expiration Date Visits Requested Visits Authorized [id number] Receiving Office to Obtain Authorization 02/26/2024 1 1 Reason for Visit * (Routine/Next Available) - Receiving Office to Obtain Authorization Specialty Diagnoses / Procedures Referred By Contac t Referred To Contact Procedures MR OUTSIDE IMAGES LUMBAR SPINE Imaging, External Referral ID Status Reason Start Date Expiration Date Visits Requested Visits Authorized [id number] Receiving Office to Obtain Authorization 02/26/2024 1 1 Encounter Details Date Type Department Care Team (Latest Contact Info) Description 01/06/2024 - 01/06/2024 23:59 EDT Hospital Encounter [facility] Secondary Reads [place] Discharge Disposition: Home or Self Care Social [...] Info) Description 04/22/2024 14:30 EDT Office Visit [facility] Interventional Pain [address] [facility] [place], [place] [id number] Сергей Maloney MBBS [address] [facility] [address] [place] [address] documented as of this encounter Procedures Procedure Name Priority Date/Time Associated Diagnosis Comments MR OUTSIDE IMAGES LUMBAR SPINE Routine 01/06/2024 13:57 EDT documented in this encounter Results * MR OUTSIDE IMAGES LUMBAR SPINE (01/06/2024 13:57 EDT) Narrative 02/26/2024 13:57 EDT This is a non-reportable exam. External Imaging IMG OTHER IMAGING OR DERABLES documented in this encounter Visit Diagnoses Not on filedocumented in this encounter Care Teams Glass Inspector Relationship Specialty Start Date End Date Colleen Sheridan, JOHN [address] [place] [address] PCP - General 06/06/18 documented as of this encounter
--- OUTSIDE RECORDS SUMMARY | 2024-04-04 20:40 | XMS_ITS | Encounter Summary ---
Author Organization [facility] Address [address] [place] [address] Care Team Providers Care Artificial Inseminator Name Role Phone MarshallColleen horn Mandy [employer] ARCHITECT Primary Care Provider [phone] Reason for Visit * Reason Comments Foreign Body in Eye Encounter Details Date Type Department Care Team (Late st Contact Info) Description 06/06/2018 Documentation Visit [facility] Ophthalmology - [id number] [place] [address] Odessa Mao MD [address] [facility], [facility] [address] [place] [id number] Foreign body of left cornea, initial encounter (Primary Dx) Social History Tobacco Use Types [...] on file documented as of this encounter Ordered Prescriptions Prescription Sig Dispensed Refills Start Date End Da te moxifloxacin (VIGAMOX) 0.5 % ophthalmic solution Place 1 Drop into the left eye 4 times daily. 3 mL 3 06/06/2018 erythromycin (ROMYCIN) 5 mg/gram (0.5 %) ophthalmic ointment Place 1 cm into the left eye 4 times daily. prn 3.5 g 3 06/06/2018 documented in this encounter Progress Notes * Odessa Mao MD - 06/06/2018 1546 EST Images from the original note were not included. CC: Chief Complaint Patient presents with ??? Foreign Body in Eye HPI: The patient is a 32 y.o. male. 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 eh's not sure if something went into his left eye at that time. Later that day he felt something in his left eye, but couldn't see anything when he checked in the mirror. He had persistent FBS and red/tearing eyes and significant photophobia in the left eye only, so he presented to the [facility] ED. Some blurry vision OD. Wears glasses, has had previous foreign bodies in eye which he has removed himself, no eye surgeries. Last edited by Odessa Mao MD on 06/06/2018 17:10. (History) ROS Negative for: Constitutional, Gastrointestinal, Neurological, Skin, Genitourinary, Musculoskeletal,HENT, Endocrine, Cardiovascular, Eyes, Respiratory, Psychiatric, Allergic/Imm, Heme/Lymph Last edited by Odessa Mao MD on 06/06/2018 17:10. (History) Allergies include: Patient has no known allergies. There is no problem list on file for this patient. No outpatient medications have been marked as taking for the 06/06/18 encounter (Documentation Visit) with Odessa Mao MD. Base Eye Exam Visual Acuity (Snellen - Linear) Right Left Dist cc 20/25 20/20 Tonometry (Tonopen) Right Left Pressure 13 17 Pupils Pupils Right PERRL Left PERRL Visual Mendoza Right Left Full Full Neuro/Psych Oriented x3: Yes Mood/Affect: Normal Strabismus Exam Method: Alternate cover Distance Near Near +3DS N Bifocals Ortho Ortho 0 0 0 0 0 0 0 0 0 0 0 0 0 0 0 0 Slit Lamp and Fundus Exam External Exam Right Left External Normal Normal Slit Lamp Exam Right Left Lids/Lashes Normal protective ptosis, increased tearing Conjunctiva/Sclera White and quiet 1+ injection Cornea Clear <1mm circular metallic FB just superior to visual axis at 12 o'clock, removed with 30G needle and pre and post vigamox Anterior Chamber Deep and quiet Deep and quiet, no TID Iris Round and reactive Round and reactive Lens Clear Clear Vitreous Normal Normal Fundus Exam Right Left Disc Normal Normal C/D Ratio 0.2 0.2 Macula Normal Normal Vessels Normal Normal Periphery Normal Normal IMPRESSION & PLAN: Encounter Diagnoses Name Primary? Foreign body of left cornea, initial encounter Yes Corrected distance visual acuity was 20/25 in the right eye and 20/20 in the left eye. - removed corneal metallic foreign body OS with 30G needle and pre/post vigamox, no complications - discussed warning signs/symptoms and need for follow up - discussed need for safety glasses while working to prevent foreign bodies in eye and severe eye trauma - vigamox qid OS and erythromycin ointment prn for pain RTC 06/09, 06/10, or 06/11 depending on patient's schedule for K check I have reviewed the patient's past medical, [...] Info) Description 04/22/2024 14:30 EDT Office Visit [facility] [address] [facility] [place], [place] [id number] Сергей Maloney MBBS [address] [facility] [address] [place] [phone] documented as of this encounter Visit Diagnoses Diagnosis Foreign body of left cornea, initial encounter- Primary documented in this encounter Eye Exam Visual Acuity (Snellen - Linear) Right eye Left eye Dist cc 20/25 20/20 Tonometry (Tonopen) Right eye Left eye Pressure 13 17 Pupils Pupils Right eye PERRL Left eye PERRL Visual Mendoza Right eye Left eye Full Full Neuro/Psych Oriented x3: Yes Mood/Affect: Normal External Exam Right eye Left eye External Normal Normal Slit Lamp Exam Right eye Left eye Lids/Lashes Normal protective ptosi s, increased tearing Conjunctiva/Sclera White and quiet 1+ injection Cornea Clear <1mm circular me tallic FB just superior to visual axis at 12 o'clock, removed with 30G needle and pre and post vigamox Anterior Chamber Deep and quiet Deep and quiet, no TID Iris Round and reactive Round and mich ctive Lens Clear Clear Vitreous Normal Normal Fundus Exam Right eye Left eye Disc Normal Normal C/D Ratio 0.2 0.2 Macula Normal Normal Vessels Normal Normal Periphery Normal Normal Strabismus Exam Method: Alternate cover Distance: Ortho Near: Ortho Right eye Left eye Up gaze 0 0 0 0 0 0 Right/left gaze 0 -- 0 0 -- 0 Down gaze 0 0 0 0 0 0 Care Teams Artificial Inseminator Relationship Specialty Start Date End Date Colleen Sheridan NP [address] [place] [address] PCP - General 06/06/18 documented as of this encounter
[2024-04-04 21:59] LABS: HCT 44.3 % (40.0-50.0); HGB 14.5 g/dL (13.5-17.5); MCHC 32.7 % (32.0-36.0); MCV 92 fL (80-95); Platelet Count 330 10^3/uL (130-400); RBC 4.84 10^6/uL (4.36-5.78); RDW 12.2 % (11.8-14.1); RDW-SD 41.1 fL; WBC 7.19 10^3/uL (4.4-10.8)
[2024-04-04 22:19] LABS: ALT 40 U/L (16-63); AST 21 U/L (15-37); Albumin 4.4 g/dL (3.4-5.0); Alkaline Phosphatase 73 U/L (46-116); Anion Gap 8.3 mmol/L (3-11); BUN 16 mg/dL (7-18); Bilirubin, Total 1.08 mg/dL (0.2-1.0); CO2 29.7 mmol/L (21.0-32.0); CREATININE 1.1 mg/dL (0.70-1.30); Calcium 9.7 mg/dL (8.5-10.1); Calculated LDL 169 mg/dL (<100); Chloride 103 mmol/L (98-107); Cholesterol 243 mg/dL (<200); Estimated GFR 89.22 (mL/min/1.73m2); Glucose 79 mg/dL (74-106); HDL Cholesterol 50 mg/dL (40-60); Sodium 141 mmol/L (136-145); TSH 2.07 uIU/Ml (0.36-3.74); Triglyceride 122 mg/dL (<150)
== END 2024-04-04 20:39 | disposition home or self-care (01) ==
LOC: NCHCN 20:38
PROVIDERS: PCP Nurse Practitioner Family; Visit Provider Nurse Practitioner Family
DX: E78.5 Hyperlipidemia, unspecified (principal); R53.83 Other fatigue
CPT/HCPCS: 80053; 80061; 85027; 84443